=== PATIENT | female | born 1990 | race American Indian/Alaskan Native ===

== ENCOUNTER 2016-06-13 04:25 | Emergency (ER) | payer SELFPAY ==
[2016-06-13] MEDS ORDERED: TYLENOL PO ONE (07:34)
[2016-06-13] MEDS ORDERED: XYLOCAINE 1% 20 mL INFILTRATI ONE (07:34)
[2016-06-13] MEDS ORDERED: TRIPLE ANTIBIOTIC TP ONE (07:35)
[2016-06-13] MEDS ORDERED: BOOSTRIX IM ONE (07:35)
[2016-06-13 08:48] VITALS: BP 118/88
--- NOTE | 2016-06-13 08:50 | Emergency Department Report ---
Upper Extremity - HPI Chief Complaint: Extremity Injury, Upper Stated Complaint: R HAND/FINGER PAIN Time Seen by Provider: 06/13/16 07:10 Upper Extremity: Right Middle Finger (visible damage to the distal right nail middle finger nail flipped up nailbed exposed) Occurred When: 2 Days Mechanism: Fall Symptoms: Yes Deformity (nail flipped up), Yes Swelling (minor amount of swelling on the lateral nail bed edge), No Pain with Movement, No Limited Range of Movement, No Numbness, No Weakness, No Bruising/Ecchymosis, No Laceration or Abrasion Other History: 25-year-old female presents with complaint of injury to the right distal finger nail middle finger. Patient states that a box hit her fingertip at work and popped her nail up 2 days ago. Patient complains of pain directly adjacent to the nail. No pain in distal pulp. States that she had minor amount of serous/purulent drainage and that distal fingernail nail bed has been slightly exposed. Patient is wearing long acrylic fingernails. Distal fingernail is visibly loose and elevated. Patient does not know her tetanus status. ED Review of Systems ROS: Stated complaint: R HAND/FINGER PAIN Other details as noted in HPI Constitutional: denies: chills, fever Eyes: denies: eye pain, eye discharge, vision change ENT: denies: ear pain, throat pain Respiratory: denies: cough, shortness of breath, wheezing Cardiovascular: denies: chest pain, palpitations Endocrine: no symptoms reported Gastrointestinal: denies: abdominal pain, nausea, diarrhea Genitourinary: denies: urgency, dysuria, discharge Musculoskeletal: denies: back pain, joint swelling, arthralgia Skin: denies: rash, lesions Neurological: denies: headache, weakness, paresthesias Psychiatric: denies: anxiety, depression Hematological/Lymphatic: denies: easy bleeding, easy bruising ED Past Medical Hx - Past Medical History Previous Medical History?: Yes Hx Psychiatric Treatment: Yes (Anxiety) - Surgical History Past Surgical History?: No - Social History Smoking Status: Current Some Day Smoker Substance Use Type: Alcohol - Medications Home Medications: Home Medications Medication Instructions Recorded Confirmed Last Taken Type Acetaminophen [Acetaminophen TAB] 500 mg PO Q6HR #30 tablet 06/13/16 Unknown Rx Cephalexin [Keflex] 500 mg PO Q12HR #10 cap 06/13/16 Unknown Rx Neomy/Baci/Polymyx Oint [Triple 15 gm TP BID #1 oint 06/13/16 Unknown Rx Antibiotic] Upper Extremity Exam - Exam General: Vital signs noted. No distress. Alert and acting appropriately. Head and Torso: No HEENT Abnormality, No Neck Tenderness, No Chest/Lungs Abnormality, No Abdominal Tenderness, No Back Tenderness Shoulder Exam: Yes Normal Range of Motion in Shoulder, No Shoulder Tenderness, No Clavicle Tenderness, No Shoulder Deformity, No AC Joint Tenderness Arm Exam: No Arm/Humerus Tenderness, No Arm Deformity Elbow: No Elbow Tenderness, No Normal Range of Motion in Elbow, No Elbow Deformity Forearm: No Forearm Tenderness, No Forearm Deformity, No Pain with Pronation, No Pain with Supination Wrist: Yes Normal ROM in Wrist, No Wrist Tenderness, No Wrist Deformity, No Snuffbox Tenderness, No Pain with Axial Thumb Compression Hand: Yes Normal ROM in Digit(s), No Hand Tenderness, No Hand Deformity, No Digit Tenderness, No Digit(s) Deformity, No Tendon Dysfunction CMS Exam: No Broken Skin, No Normal Distal Pulses, No Normal Capillary Refill, No Normal Distal Sensation ED Course Vital Signs 06/13/16 04:29 Temperature 97.4 F L Pulse Rate 54 L Blood Pressure 127/82 O2 Sat by Pulse 100 Oximetry - Laceration /Wound Repair Right Finger Wound Location: upper extremity Volume Anesthetic (ccs): 2 Sterile Dressing Applied?: Yes (Xeroform) Progress: Distal fingertip anesthetized with 1% lidocaine no epinephrine. Good anesthesia achieved. I was able to use forceps to gently extract detached nail only hanging on by tiny flap of skin. Nail bed appears intact. [place] no lacerations to nail bed. No signs of paronychia minimal to no purulent material only serous fluid. Procedure tolerated well. Minimal to no bleeding. After removal of acrylic nail and nail I applied a small amount of triple antibiotic ointment wrap the distal fingertip of Xeroform gauze then dry gauze then applied a fingertip splint. ED Medical Decision Making - Medical Decision Making A/P: Avulsed fingernail 1-finger nail removed successfully, only was hanging on by a small portion of skin. No paronychia no nailbed damage. I applied a sterile dressing urine using Xeroform and gauze and applied a fingertip splint. 2-no hematoma on the nailbed, no signs of paronychia or felon 3-Motrin 600 when necessary for pain. Flexeril 500 mg twice a day 5 days 4-tetanus updated 5-instructed patient on wound care. Advised her to return to the ED if she experiences any significant fingertip swallowing pus drainage erythema or signs of cellulitis Critical care attestation.: If time is entered above; I have spent that time in minutes in the direct care of this critically ill patient, excluding procedure time. ED Disposition Clinical Impression: Avulsed fingernail Qualifiers: Encounter type: initial encounter Qualified Code(s): S61.309A - Unspecified open wound of unspecified finger with damage to nail, initial encounter Disposition: DISCHARGED TO HOME OR SELFCARE Is pt being admited?: No Does the pt Need Aspirin: No Condition: Stable Instructions: Acute Wound Care (ED), Diphtheria/Acellular Pertussis/Tetanus Vaccine (DTaP) (Injection) Prescriptions: Acetaminophen [Acetaminophen TAB] 500 mg PO Q6HR #30 tablet Cephalexin [Keflex] 500 mg PO Q12HR #10 cap Neomy/Baci/Polymyx Oint [Triple Antibiotic] 15 gm TP BID #1 oint Referrals: PRIMARY CARE, [Primary Care Provider] - 3-5 Days [facility] [place] [Outside] - 3-5 Days [facility] [Provider Group] - 3-5 Days Forms: Work/School Release Form(ED) Time of Disposition: 08:50
== END 2016-06-13 08:59 | disposition home or self-care (01) ==
LOC: ED 04:25
DX: S61.302A Unspecified open wound of right middle finger with damage to nail, initial encounter (principal); F41.9 Anxiety disorder, unspecified; F17.200 Nicotine dependence, unspecified, uncomplicated; W22.8XXA Striking against or struck by other objects, initial encounter; Y93.89 Activity, other specified; Y99.8 Other external cause status; Y92.89 Other specified places as the place of occurrence of the external cause
CPT/HCPCS: 90471; 90715; A6250

== ENCOUNTER 2016-08-10 19:47 | Emergency (ER) | payer SELFPAY ==
[2016-08-11] MEDS ORDERED: DUONEB 0.5 MG-3 MG/3 ML SOLN IH ONE (01:20)
[2016-08-11] MEDS ORDERED: ROBITUSSIN AC PO ONE (01:20)
[2016-08-11 02:05] LABS: Basophils % (Auto) 0.4 % (0.0-1.8); Hematocrit 45.7 % (30.3-42.9); Hemoglobin 15.2 gm/dl (10.1-14.3); Mean Corpuscular HGB Conc 33 % (30-34); Mean Corpuscular Hemoglobin 32 pg (28-32); Mean Corpuscular Volume 96 fl (79-97); Platelet Count 310 K/mm3 (140-440); Red Blood Count 4.78 M/mm3 (3.65-5.03); Red Cell Distribution Width 13.6 % (13.2-15.2); White Blood Count 12.7 K/mm3 (4.5-11.0)
[2016-08-11 02:13] LABS: Anion Gap 20 mmol/L; BUN/Creatinine Ratio 5.71; Blood Urea Nitrogen 4 mg/dL (7-17); Calcium 9.2 mg/dL (8.4-10.2); Carbon Dioxide 23 mmol/L (22-30); Chloride 98.8 mmol/L (98-107); Glucose 69 mg/dL (65-100); Potassium 4.1 mmol/L (3.6-5.0); Sodium 138 mmol/L (137-145)
--- NOTE | 2016-08-11 02:22 | Emergency Department Report ---
HPI - General Chief Complaint: Dyspnea/Respdistress Time Seen by Provider: 08/11/16 00:58 - HPI HPI: This is a 25-year-old [place]izen [place] female presents to the emergency department from home with a few different complaints. The patient is been having a four- day history of a productive cough. She also complains of a "lump" to the right side of her neck. Past 2 days that is tender. She feels like there is been some tightness in her chest along with the cough. She has a past medical history of anxiety. She has taken NyQuil, Mucinex, Tylenol and Benadryl for symptoms without much relief. She denies tobacco abuse or illicit drug use. She does not have a primary care doctor. No recent travel or sick contacts at home. ED Past Medical Hx - Past Medical History Previous Medical History?: No Hx Psychiatric Treatment: Yes (Anxiety) - Surgical History Past Surgical History?: No - Social History Smoking Status: Current Some Day Smoker Substance Use Type: Alcohol - Medications Home Medications: Home Medications Medication Instructions Recorded Confirmed Last Taken Type Acetaminophen [Acetaminophen TAB] 500 mg PO Q6HR #30 tablet 06/13/16 Unknown Rx Cephalexin [Keflex] 500 mg PO Q12HR #10 cap 06/13/16 Unknown Rx Neomy/Baci/Polymyx Oint [Triple 15 gm TP BID #1 oint 06/13/16 Unknown Rx Antibiotic] ALBUTEROL Inhaler [ProAir HFA 2 puff IH QID PRN #1 inhalation 08/11/16 Unknown Rx Inhaler] Amoxicillin/K Clav Tab [Augmentin 1 each PO Q12HR #14 tablet 08/11/16 Unknown Rx 500 MG TAB] guaiFENesin/CODEINE [Robitussin AC] 5 ml PO Q6H PRN #80 ml 08/11/16 Unknown Rx ED Review of Systems ROS: Stated complaint: LIO Other details as noted in HPI Comment: All other systems reviewed and negative Constitutional: denies: chills, fever Eyes: denies: eye pain, eye discharge, vision change ENT: denies: ear pain, throat pain Respiratory: cough. denies: shortness of breath Cardiovascular: chest pain (tightness), edema (right neck swelling). denies: palpitations Gastrointestinal: denies: abdominal pain, nausea, diarrhea Genitourinary: denies: urgency, dysuria, discharge Musculoskeletal: denies: back pain, joint swelling, arthralgia Skin: denies: rash, pruritus Neurological: denies: headache, weakness, paresthesias Physical Exam - Physical Exam Vital Signs: Vital Signs 08/10/16 08/10/16 08/11/16 19:47 21:41 01:08 Temperature 98.5 F 98.1 F 98.1 F Pulse Rate 91 H 81 106 H Respiratory 22 18 19 Rate Blood Pressure 99/60 102/64 Blood Pressure 129/86 [Left] O2 Sat by Pulse 96 100 100 Oximetry 08/11/16 01:27 Temperature Pulse Rate Respiratory 14 Rate Blood Pressure Blood Pressure [Left] O2 Sat by Pulse 100 Oximetry Physical Exam: GGENERAL: The patient is well-developed well-nourished. HEENT: Normocephalic. Atraumatic. Extraocular motions are intact. Patient has moist mucous membranes. Pupils equal reactive to light bilaterally. Oropharynx is clear without tonsillar but should be, erythema or exudates. NECK: Supple. Trachea is midline. Full range of motion. There is a tender but mobile right-sided cervical lymph node. CHEST/LUNGS: Clear to auscultation. No cough heard during examination. There is no respiratory distress noted. HEART/CARDIOVASCULAR: Regular. There is no tachycardia. There is no gallop rub or murmur. ABDOMEN: Abdomen is soft, nontender. Patient has normal bowel sounds. There is no abdominal distention. SKIN: Skin is warm and dry. NEURO: The patient is awake, alert, and oriented. The patient is cooperative. The patient has no focal neurologic deficits. The patient has normal speech and gait. MUSCULOSKELETAL: There is no tenderness or deformity. There is no limitation range of motion. There is no evidence of acute injury. ED Course Vital Signs 08/10/16 08/10/16 08/11/16 19:47 21:41 01:08 Temperature 98.5 F 98.1 F 98.1 F Pulse Rate 91 H 81 106 H Respiratory 22 18 19 Rate Blood Pressure 99/60 102/64 Blood Pressure 129/86 [Left] O2 Sat by Pulse 96 100 100 Oximetry 08/11/16 01:27 Temperature Pulse Rate Respiratory 14 Rate Blood Pressure Blood Pressure [Left] O2 Sat by Pulse 100 Oximetry ED Medical Decision Making - Lab Data Result diagrams: 08/11/16 01:34 08/11/16 01:34 - EKG Data -: EKG Interpreted by Me EKG shows normal: sinus rhythm, axis, intervals, QRS complexes, ST-T waves Rate: normal - EKG Data When compared to previous EKG there are: previous EKG unavailable Interpretation: normal EKG - Radiology Data Radiology results: image reviewed interpreted by me: Chest x-ray did not show any acute process. Heart is normal shape and size. No effusions. No pneumothorax. No signs of pneumonia seen. - Medical Decision Making 25-year-old female presents to the emergency department with a four-day history of a cough and a 2 day history of right-sided "lump" to the right side of the neck. The lump appears most consistent with lymph node. It is tender but mobile and not fixed. Patient did complain of some chest tightness so she was given a breathing treatment. She was given Robitussin-AC for cough. EKG did not show any signs of ST elevation MT, ischemia or dysrhythmia. Chest x-ray did not show any pneumonia, pleural effusions, pneumothorax or any acute process. Patient's labs are mostly unremarkable. Patient appears most consistent with a viral syndrome or viral bronchitis. She will be given albuterol inhaler and Robitussin-AC. She will be given a short dose of antibiotics for the lymphadenopathy. She was given referrals for primary care. She will return to the ER with any worsening of her symptoms or any acute distress. I discussed in detail with the patient about her lymphadenopathy. If the lymph node does not go away in a reasonable amount of time or it begins growing larger , or she starts to develop multiple lymph nodes and/or "lumps", that she is to be seen sooner either by a primary care doctor or back in the emergency department. - Differential Diagnosis bronchitis, asthma, viral syndrome, lymphadenopathy, lymphoma Critical care attestation.: If time is entered above; I have spent that time in minutes in the direct care of this critically ill patient, excluding procedure time. ED Disposition Clinical Impression: Viral syndrome, Cough, Lymphadenopathy Disposition: DISCHARGED TO HOME OR SELFCARE Is pt being admited?: No Condition: Stable Instructions: Lymphadenopathy (ED), Viral Syndrome (ED) Additional Instructions: Please follow-up with a primary care doctor in the next few days. Return to the emergency department with any worsening of her symptoms, increased swelling of your neck, shortness of breath or respiratory distress, or any acute distress. You've been prescribed a medication that is sedating. Therefore this medication cannot be mixed with alcohol, or taken prior to driving, working, or being responsible for children. Prescriptions: ALBUTEROL Inhaler [ProAir HFA Inhaler] 2 puff IH QID PRN #1 inhalation PRN Reason: Shortness Of Breath Amoxicillin/K Clav Tab [Augmentin 500 MG TAB] 1 each PO Q12HR #14 tablet guaiFENesin/CODEINE [Robitussin AC] 5 ml PO Q6H PRN #80 ml PRN Reason: Cough Referrals: PRIMARY CARE, [Primary Care Provider] - 3-5 Days LEEANOR SANTIAGO MD [Staff Physician] - 3-5 Days [facility] [Outside] - 3-5 Days Time of Disposition: 03:37
[2016-08-11 04:15] VITALS: BP 124/53
--- NOTE | 2016-08-11 08:52 | XRay Report ---
ROUTINE CHEST, TWO VIEWS: PA and lateral views demonstrate the heart and mediastinal contour to be of normal size and shape. The lungs are clear and fully expanded and the soft tissues and bony structures are normal. IMPRESSION: Normal study. In
== END 2016-08-11 04:00 | disposition home or self-care (01) ==
LOC: ED 19:47
DX: B34.9 Viral infection, unspecified (principal); R05 Cough; R59.1 Generalized enlarged lymph nodes; F41.9 Anxiety disorder, unspecified; Z72.0 Tobacco use
CPT/HCPCS: 36415; 71020; 80048; 84703; 85025; 93005; 93010; 94640

== ENCOUNTER 2018-12-24 01:39 | Emergency (ER) | payer SELFPAY ==
[2018-12-24 02:11] LABS: Basophils # (Auto) 0.1 K/mm3 (0.0-0.1); Basophils % (Auto) 0.8 % (0.0-1.8); Eosinophils # (Auto) 0.5 K/mm3 (0.0-0.4); Eosinophils % (Auto) 5.7 % (0.0-4.3); Hematocrit 37.3 % (30.3-42.9); Hemoglobin 12.7 gm/dl (10.1-14.3); Lymphocytes # (Auto) 3.1 K/mm3 (1.2-5.4); Lymphocytes % (Auto) 36.6 % (13.4-35.0); Mean Corpuscular HGB Conc 34 % (30-34); Mean Corpuscular Volume 93 fl (79-97); Monocytes # (Auto) 0.9 K/mm3 (0.0-0.8); Monocytes % (Auto) 10.1 % (0.0-7.3); Platelet Count 282 K/mm3 (140-440); Red Blood Count 4.02 M/mm3 (3.65-5.03); Red Cell Distribution Width 13.4 % (13.2-15.2)
[2018-12-24 02:27] LABS: Alanine Aminotransferase 14 units/L (7-56); Albumin 3.8 g/dL (3.9-5); BUN/Creatinine Ratio 19; Blood Urea Nitrogen 13 mg/dL (7-17); Calcium 9.1 mg/dL (8.4-10.2); Hemolysis Index 8
[2018-12-24] MEDS ORDERED: MORPHINE IV ONE (03:31)
[2018-12-24] MEDS ORDERED: ZOFRAN IV ONE (03:31)
[2018-12-24] MEDS ORDERED: PEPCID IV ONE (03:31)
[2018-12-24 03:46] LABS: Bilirubin,Urine NEG (Negative); Blood,Urine SM (Negative); Color,Urine Colorless (Yellow); Protein,Urine <15 mg/dL mg/dL (Negative); Urobilinogen,Urine < 2.0 mg/dL (<2.0)
--- NOTE | 2018-12-24 04:08 | XRay Report ---
CHEST 2 VIEWS INDICATION: CHEST PAIN. Generalized chest pain and shortness of breath for the past 4 hours COMPARISON: Chest x-ray from 08/11/2016 FINDINGS: Support devices: None. Heart: Within normal limits. Lungs/pleura: No acute air space or interstitial disease. No pneumothorax. Additional findings: None. IMPRESSION: 1. No acute findings. Signer Name: Jayce Guevara MD Signed: 12/24/2018 4:04 AM Workstation Name: [id number]
--- NOTE | 2018-12-24 04:47 | Ultrasound Report ---
LIMITED RUQ ABDOMINAL ULTRASOUND INDICATION: RUQ PAIN. COMPARISON: CT abdomen/pelvis from 10/31/2014. FINDINGS: Pancreas: Visualized portions show no significant abnormality. Abdominal Aorta: No significant abnormality. IVC: No significant abnormality. Liver: The liver measures 16.1 cm in length. No focal parenchymal abnormality. Normal hepatopedal bl ood flow in the main portal vein. Gallbladder: No significant abnormality. Bile ducts: No significant abnormality. Common bile duct measures 3 mm. Right kidney: No significant abnormality visualized.. Free fluid: None. Additional Findings: None. IMPRESSION: 1. No acute abnormality.. Signer Name: Jayce Guevara MD Signed: 12/24/2018 4:42 AM Workstation Name: [id number]
--- NOTE | 2018-12-24 05:37 | Emergency Department Report ---
ED Abdominal Pain HPI - General Chief Complaint: Abdominal Pain Stated Complaint: PAIN ON RIGHT SIDE Source: patient Mode of arrival: Ambulatory Limitations: No Limitations - History of Present Illness Initial Comments: Patient is a 28-year-old Vietnamese female with no past medical history presents to the ED with complaint of acute onset persistent epigastric and right upper quadrant pain that radiates to the right chest wall for the last for hours. Patient also complains of nausea and shortness of breath. Patient denies dizziness, fever, chills, vomiting, dysuria, urinary frequency and urgency, heavy lifting, hematuria, diarrhea, vaginal bleeding, cough, sore throat, he adache, palpitations or back pain. MD Complaint: abdominal pain (Epigastric and RUQ), other (NAUSEA) -: Sudden, hour(s) (4) Location: RUQ, epigastric Radiation: chest (right chest wall) Migration to: RUQ, epigastric Severity scale (0 -10): 7 Quality: stabbing, aching, sharp Consistency: constant Improves With: rest Worsens With: movement, other (deep inhalation) Associated Symptoms: denies other symptoms, nausea. denies: vomiting, diarrhea, fever, chills, constipation, dysuria, hematemesis, hematochezia, melena, hematu renetta, anorexia, syncope - Related Data LMP (females 10-50): last week Previous Rx's Medication Instructions Recorded Last Taken Type Acetaminophen [Acetaminophen TAB] 500 mg PO Q6HR #30 tablet 06/13/16 Unknown Rx Neomy/Baci/Polymyx Oint [Triple 15 gm TP BID #1 oint 06/13/16 Unknown Rx Antibiotic] cephALEXin [Keflex] 500 mg PO Q12HR #10 cap 06/13/16 Unknown Rx ALBUTEROL Inhaler (OR & NICU) 2 puff IH QID PRN #1 inhalation 08/11/16 Unknown Rx [ProAir HFA Inhaler] Amoxicillin/K Clav Tab [Augmentin 1 each PO Q12HR #14 tablet 08/11/16 Unknown Rx 500 MG TAB] guaiFENesin/CODEINE [Robitussin AC] 5 ml PO Q6H PRN #80 ml 08/11/16 Unknown Rx Dicyclomine [Bentyl] 20 mg PO Q6H PRN #24 tablet 12/24/18 Unknown Rx Ondansetron (Nf) [Zofran TAB] 8 mg PO Q8HR PRN #15 tablet 12/24/18 Unknown Rx raNITIdine HCl [Zantac] 150 mg PO Q12H #30 tablet 12/24/18 Unknown Rx traMADol [Ultram] 50 mg PO Q6HR PRN #15 tablet 12/24/18 Unknown Rx Allergies Allergy/AdvReac Type Severity Reaction Status Date / Time ketorolac tromethamine Allergy Hives Verified 06/19/15 11:29 [From Toradol] Sulfa (Sulfonamide Allergy Hives Verified 06/19/15 11:29 Antibiotics) ED Review of Systems ROS: Stated complaint: PAIN ON RIGHT SIDE Other details as noted in HPI Constitutional: denies: chills, fever Eyes: denies: eye pain, eye discharge, vision change ENT: denies: ear pain, throat pain Respiratory: denies: cough, shortness of breath, wheezing Cardiovascular: chest pain (Right chest wall). denies: palpitations, syncope, paroxysmal nocturnal dyspnea Endocrine: no symptoms reported Gastrointestinal: abdominal pain (RUQ and epigastric), nausea. denies: diarrhea Genitourinary: denies: urgency, dysuria, discharge Musculoskeletal: denies: back pain, joint swelling, arthralgia Skin: denies: rash, lesions Neurological: denies: headache, weakness, paresthesias Psychiatric: denies: anxiety, depression Hematological/Lymphatic: denies: easy bleeding, easy bruising ED Past Medical Hx - Past Medical History Previous Medical History?: Yes Hx Psychiatric Treatment: Yes (Anxiety) - Surgical History Past Surgical History?: No - Social History Smoking Status: Current Every Day Smoker Substance Use Type: Alcohol - Medications Home Medications: Home Medications Medication Instructions Recorded Confirmed Last Taken Type Acetaminophen [Acetaminophen TAB] 500 mg PO Q6HR #30 tablet 06/13/16 Unknown Rx Neomy/Baci/Polymyx Oint [Triple 15 gm TP BID #1 oint 06/13/16 Unknown Rx Antibiotic] cephALEXin [Keflex] 500 mg PO Q12HR #10 cap 06/13/16 Unknown Rx ALBUTEROL Inhaler (OR & NICU) 2 puff IH QID PRN #1 inhalation 08/11/16 Unknown Rx [ProAir HFA Inhaler] Amoxicillin/K Clav Tab [Augmentin 1 each PO Q12HR #14 tablet 08/11/16 Unknown Rx 500 MG TAB] guaiFENesin/CODEINE [Robitussin AC] 5 ml PO Q6H PRN #80 ml 08/11/16 Unknown Rx Dicyclomine [Bentyl] 20 mg PO Q6H PRN #24 tablet 12/24/18 Unknown Rx Ondansetron (Nf) [Zofran TAB] 8 mg PO Q8HR PRN #15 tablet 12/24/18 Unknown Rx raNITIdine HCl [Zantac] 150 mg PO Q12H #30 tablet 12/24/18 Unknown Rx traMADol [Ultram] 50 mg PO Q6HR PRN #15 tablet 12/24/18 Unknown Rx ED Physical Exam - General Limitations: No Limitations General appearance: alert, in no apparent distress - Head Head exam: Present: atraumatic, normocephalic, normal inspection - Eye Eye exam: Present: normal appearance, PERRL, EOMI. Absent: scleral icterus Pupils: Present: normal accommodation - ENT ENT exam: Present: normal exam, normal orophraynx, mucous membranes moist, TM's normal bilaterally, normal external ear exam - Neck Neck exam: Present: normal inspection, full ROM. Absent: tenderness, lymphadenopathy, thyromegaly - Respiratory Respiratory exam: Present: normal lung sounds bilaterally, chest wall tenderness (right chest wall). Absent: respiratory distress, wheezes, rales, rhonchi, accessory muscle use, decreased breath sounds, prolonged expiratory - Cardiovascular Cardiovascular Exam: Present: regular rate, normal rhythm, normal heart sounds. Absent: systolic murmur, diastolic murmur, rubs, gallop - GI/Abdominal GI/Abdominal exam: Present: soft, tenderness (RUQ and epigastric), guarding, normal bowel sounds. Absent: rebound, hyperactive bowel sounds, hypoactive bowel sounds, mass, pulsatile mass - Rectal Rectal exam: Present: deferred - Extremities Exam Extremities exam: Present: normal inspection, full ROM, normal capillary refill - Back Exam Back exam: Present: normal inspection, full ROM. Absent: tenderness, CVA tenderness (R), CVA tenderness (L), muscle spasm, paraspinal tenderness, vertebral tenderness - Neurological Exam Neurological exam: Present: alert, oriented X3, CN II-XII intact, normal gait, reflexes normal - Psychiatric Psychiatric exam: Present: normal affect, normal mood - Skin Skin exam: Present: warm, dry, intact, normal color. Absent: rash ED Course Vital Signs 12/24/18 12/24/18 01:42 04:15 Temperature 97.7 F Pulse Rate 83 Respiratory 18 16 Rate Blood Pressure 149/105 O2 Sat by Pulse 99 Oximetry - Reevaluation(s) Reevaluation #1: 12/24/18 05:45 This is a 28-year-old Vietnamese female who presented to the ED with acute onset persistent right upper quadrant and epigastric pain that radiates to the right chest wall for hours with nausea. In the ED, patient is alert and oriented 3 and is not in distress but appears to be in pain. Chest x-ray shows no acute cardiopulmonary abnormalities. Right upper quadrant abdominal ultrasound shows normal gallbladder with no gallstones, pericholecystic fluid or gallbladder wall thickness. Patient was treated for pain in the ED with pain medications, antacids and anti-emetics. Lab test results were reviewed and are all unremarkable including urinalysis. On reevaluation, patient's pain is well- controlled with medications patient is sleeping in the room in no distress. Patient was discharged home on pain medications, antacids and anti-emetics and advised to follow-up with her primary care physician 5-7 days for reevaluation or return to the ED immediately if symptoms get worse. ED Medical Decision Making - Lab Data Result diagrams: 12/24/18 01:48 12/24/18 01:48 - Radiology Data Radiology results: report reviewed, image reviewed Chest x-ray shows no acute cardiopulmonary abnormalities. Gallbladder ultrasound shows normal gallbladder, with normal gallbladder wall and no gallstones. - Medical Decision Making This is a 28-year-old Vietnamese female who presented to the ED with acute onset persistent right upper quadrant and epigastric pain that radiates to the right chest wall for hours with nausea. In the ED, patient is alert and oriented 3 and is not in distress but appears to be in pain. Chest x-ray shows no acute cardiopulmonary abnormalities. Right upper quadrant abdominal ultrasound shows normal gallbladder with no gallstones, pericholecystic fluid or gallbladder wall thickness. Patient was treated for pain in the ED with pain medications, antacids and anti-emetics. Lab test results were reviewed and are all unremarkable including urinalysis. On reevaluation, patient's pain is well- controlled with medications patient is sleeping in the room in no distress. Patient was discharged home on pain medications, antacids and anti-emetics and advised to follow-up with her primary care physician 5-7 days for reevaluation or return to the ED immediately if symptoms get worse. - Differential Diagnosis Abdominal pain; Gallstones; Cholecystectomy; Pneumonia; GERD Critical care attestation.: If time is entered above; I have spent that time in minutes in the direct care of this critically ill patient, excluding procedure time. ED Disposition Clinical Impression: Acute abdominal pain in right upper quadrant, Muscle strain of anterior chest wall GERD (gastroesophageal reflux disease) Qualifiers: Esophagitis presence: without esophagitis Qualified Code(s): K21.9 - Gastro- esophageal reflux disease without esophagitis Disposition: TO HOME OR SELFCARE Is pt being admited?: No Does the pt Need Aspirin: No Condition: Stable Instructions: Abdominal Pain (ED), Muscle Strain (ED), Gastroesophageal Reflux Disease (ED) Additional Instructions: Take medications with food, drink plenty of fluids and follow up with your primary care physician in 5-7 days for reevaluation. Return to ED immediately if symptoms get worse. Prescriptions: Dicyclomine [Bentyl] 20 mg PO Q6H PRN #24 tablet PRN Reason: Pain , Severe (7-10) traMADol [Ultram] 50 mg PO Q6HR PRN #15 tablet PRN Reason: Pain raNITIdine HCl [Zantac] 150 mg PO Q12H #30 tablet Ondansetron (Nf) [Zofran TAB] 8 mg PO Q8HR PRN #15 tablet PRN Reason: Nausea Referrals: [facility] [Outside] - 3-5 Days Forms: Work/School Release Form(ED) Time of Disposition: 05:49 Print Language: NEPALESE
[2018-12-24] MEDS ORDERED: ZOFRAN ODT PO ONE (06:28)
[2018-12-24] MEDS ORDERED: NORCO 5/325 PO ONE (06:28)
[2018-12-24 07:08] VITALS: BP 106/63
== END 2018-12-24 07:10 | disposition home or self-care (01) ==
LOC: ED 01:39
DX: S29.011A Strain of muscle and tendon of front wall of thorax, initial encounter (principal); K21.9 Gastro-esophageal reflux disease without esophagitis; F41.9 Anxiety disorder, unspecified; F17.200 Nicotine dependence, unspecified, uncomplicated; Z79.899 Other long term (current) drug therapy; Z88.8 Allergy status to other drugs, medicaments and biological substances; Z88.2 Allergy status to sulfonamides; X58.XXXA Exposure to other specified factors, initial encounter; Y93.9 Activity, unspecified; Y92.89 Other specified places as the place of occurrence of the external cause; Y99.8 Other external cause status
CPT/HCPCS: 36415; 71046; 76705; 80053; 81001; 84703; 85025; 96374; 96375; 99284; J2270; J2405; Q0162